=== PATIENT | female | born 1975 | race Caucasian/White ===

== ENCOUNTER 2018-06-02 11:00 | Emergency (ER) | payer MEDICARE, MEDICAID ==
[2018-06-02 11:23] VITALS: TEMP 97.2
[2018-06-02 11:32] LABS: BASOPHILS % (AUTO) 1 % (0-3); EOSINOPHILS % (AUTO) 1 % (0-9); HEMATOCRIT 44 % (35-47); HEMOGLOBIN 14.1 gm/dl (12.0-15.5); LYMPHOCYTES % (AUTO) 36.6 % (10-50); MEAN CORPUSCULAR HEMOGLOBIN 31.8 pg (27.0-32.0); MEAN CORPUSCULAR HGB CONC 32.1 gm/dl (32.0-36.0); MONOCYTES % (AUTO) 7.7 % (0-12); NEUTROPHILS % (AUTO) 53.9 % (37-80)
[2018-06-02 11:34] LABS: MEAN CORPUSCULAR VOLUME 99 fL (81-99)
[2018-06-02 11:52] LABS: ALBUMIN 3.6 gm/dl (3.4-5.0); BILIRUBIN,TOTAL 1.1 mg/dl (0.2-1.0); CALCIUM 8.6 mg/dl (8.5-10.1); CARBON DIOXIDE 27.1 mEq/L (21-32); CREATININE 1.26 mg/dl (0.60-1.00); POTASSIUM 4.1 mMol/L (3.5-5.1); TOTAL PROTEIN 7.6 gm/dl (6.4-8.2)
[2018-06-02 12:03] LABS: APPEARANCE,URINE Clear; BILIRUBIN,URINE NEGATIVE (NEGATIVE); COLOR,URINE Yellow; GLUCOSE, URINE (UA) NEGATIVE (NEGATIVE); KETONES,URINE NEGATIVE (NEGATIVE); LEUKOCYTE ESTERASE ,URINE NEGATIVE (NEGATIVE); NITRATE,URINE NEGATIVE (NEGATIVE); OCCULT BLOOD,URINE NEGATIVE (NEG-TRACE); UROBILINOGEN,URINE 0.2 (0.2-1.0 EU)
[2018-06-02 12:34] LABS: BACTERIA TRACE (< 1+); CRYSTALS NEGATIVE (0-3 AVE/HPF); EPITHELIAL CELLS 0-4 (SQUAMOUS); RBC,URINE 0-2 (0-3AV/HPF); WBC,URINE 0-3 (0-5AV/HPF)
[2018-06-02 14:29] VITALS: BP 108/67; PULSE 44; RESP 18; O2SAT 97
== END 2018-06-02 14:34 | disposition home or self-care (01) | DRG 948 ==
LOC: ED 11:00
DX: R41.82 Altered mental status, unspecified (principal); R00.1 Bradycardia, unspecified
CPT/HCPCS: 70450; 80053; 81001; 85025; 99284

== ENCOUNTER 2018-09-19 15:20 | Emergency (ER) | payer MEDICARE, MEDICAID ==
[2018-09-19 15:41] VITALS: TEMP 97.4; O2SAT 100
[2018-09-19 16:12] VITALS: RESP 20
[2018-09-19 16:36] VITALS: BP 109/77; PULSE 54
== END 2018-09-19 16:33 | disposition home or self-care (01) | DRG 914 ==
LOC: ED 15:20
DX: S09.90XA Unspecified injury of head, initial encounter (principal); W18.09XA Striking against other object with subsequent fall, initial encounter; R40.2362 Coma scale, best motor response, obeys commands, at arrival to emergency department; R40.2142 Coma scale, eyes open, spontaneous, at arrival to emergency department; R40.2242 Coma scale, best verbal response, confused conversation, at arrival to emergency department
CPT/HCPCS: 99282; 99283

== ENCOUNTER 2018-10-06 08:04 | Emergency (ER) | payer MEDICARE, MEDICAID ==
[2018-10-06 08:37] VITALS: RESP 19
[2018-10-06 08:45] LABS: HEMATOCRIT 45 % (35-47); HEMOGLOBIN 14.1 gm/dl (12.0-15.5); MEAN CORPUSCULAR HEMOGLOBIN 30.9 pg (27.0-32.0); MEAN CORPUSCULAR HGB CONC 31.3 gm/dl (32.0-36.0); MEAN CORPUSCULAR VOLUME 98 fL (81-99)
[2018-10-06 09:07] LABS: ALBUMIN 3.4 gm/dl (3.4-5.0); ALKALINE PHOSPHATASE 92 IU/L (46-116); ALT 18 IU/L (14-63); AST 21 IU/L (15-37); BILIRUBIN,TOTAL 1.2 mg/dl (0.2-1.0); BLOOD UREA NITROGEN 20 mg/dl (7-18); CALCIUM 8.9 mg/dl (8.5-10.1); CARBON DIOXIDE 29.6 mEq/L (21-32); CHLORIDE 104 mMol/L (98-107); GLUCOSE 96 mg/dl (74-106); POTASSIUM 4.2 mMol/L (3.5-5.1); SODIUM 140 mMol/L (136-145); TOTAL PROTEIN 7.2 gm/dl (6.4-8.2); TROP I < 0.017 ng/ml (0.000-0.056)
[2018-10-06 09:19] LABS: BAND NEUTROPHILS % (MANUAL) 2 %; BASOPHILS % (MANUAL) 1 % (0-3); EOSINOPHILS % (MANUAL) 1 % (0-9); LYMPHOCYTES % (MANUAL) 49 % (10-50); MONOCYTES % (MANUAL) 13 % (0-12); NEUTROPHILS % (MANUAL) 34 % (37-80)
[2018-10-06 09:20] LABS: NORMAL RBCS PRESENT
[2018-10-06 10:13] VITALS: BP 123/68; PULSE 50; TEMP 97.4; O2SAT 100
== END 2018-10-06 09:54 | disposition home or self-care (01) | DRG 310 ==
LOC: ED 08:04
DX: R00.1 Bradycardia, unspecified (principal); R55 Syncope and collapse
CPT/HCPCS: 36415; 80053; 84484; 85007; 85027; 93005; 99283; 99284

== ENCOUNTER 2018-10-14 08:35 | Emergency (ER) | payer MEDICARE, MEDICAID ==
[2018-10-14] MEDS ORDERED: SODIUM CHLORIDE 0.9% 1000ML 1,000 ML IV ONE (09:05)
[2018-10-14 09:15] LABS: BASOPHILS % (AUTO) 1 % (0-3); EOSINOPHILS % (AUTO) 0 % (0-9); HEMATOCRIT 46 % (35-47); HEMOGLOBIN 14.4 gm/dl (12.0-15.5); LYMPHOCYTES % (AUTO) 21.6 % (10-50); MEAN CORPUSCULAR HGB CONC 31.5 gm/dl (32.0-36.0); MEAN CORPUSCULAR VOLUME 98 fL (81-99); MONOCYTES % (AUTO) 7.7 % (0-12); NEUTROPHILS % (AUTO) 69.1 % (37-80)
[2018-10-14 09:30] LABS: ALBUMIN 3.6 gm/dl (3.4-5.0); BILIRUBIN,TOTAL 1.2 mg/dl (0.2-1.0); CALCIUM 8.7 mg/dl (8.5-10.1); CARBON DIOXIDE 28.3 mEq/L (21-32); CREATININE 1.37 mg/dl (0.60-1.00); POTASSIUM 4.2 mMol/L (3.5-5.1); TOTAL PROTEIN 7.4 gm/dl (6.4-8.2)
[2018-10-14] MEDS ORDERED: SODIUM CHLORIDE 0.9% 1000ML 1,000 ML IV SCH (09:45)
[2018-10-14] MEDS ORDERED: SODIUM CHLORIDE 0.9% FLUSH 10 ML SOL IV PRN (09:53)
[2018-10-14 11:11] LABS: APPEARANCE,URINE Clear; BILIRUBIN,URINE NEGATIVE (NEGATIVE); COLOR,URINE Yellow; GLUCOSE, URINE (UA) NEGATIVE (NEGATIVE); KETONES,URINE NEGATIVE (NEGATIVE); LEUKOCYTE ESTERASE ,URINE NEGATIVE (NEGATIVE); NITRATE,URINE NEGATIVE (NEGATIVE); OCCULT BLOOD,URINE NEGATIVE (NEG-TRACE); UROBILINOGEN,URINE 0.2 (0.2-1.0 EU)
[2018-10-14 11:20] LABS: BACTERIA 1+ (< 1+); CRYSTALS NEGATIVE (0-3 AVE/HPF); RBC,URINE 0-2 (0-3AV/HPF); WBC,URINE 0-2 (0-5AV/HPF)
[2018-10-14] MEDS ORDERED: SODIUM CHLORIDE 0.9% 1000ML 1,000 ML IV NR (12:15)
[2018-10-14 12:21] VITALS: BP 94/60; PULSE 68; RESP 14; TEMP 97.3; O2SAT 96
[2018-10-14] MEDS ORDERED: ACETAMINOPHEN 500 MG 500 MG TAB PO ONE (12:27)
[2018-10-14] MEDS ORDERED: ACETAMINOPHEN 500 MG 500 MG TAB ONE (12:28)
== END 2018-10-14 13:10 | disposition short-term general hospital (02) | DRG 101 ==
LOC: ED 08:35
DX: R56.9 Unspecified convulsions (principal); R00.1 Bradycardia, unspecified
CPT/HCPCS: 36415; 70450; 80053; 81001; 85025; 93005; 96365; 99283; 99285; G0390

== ENCOUNTER 2018-10-25 14:15 | Emergency (ER) | payer MEDICARE, MEDICAID ==
[2018-10-25 14:23] VITALS: TEMP 97.4
[2018-10-25] MEDS ORDERED: SODIUM CHLORIDE 0.9% 500 ML 500 ML IV ONE (14:36)
[2018-10-25 15:01] LABS: BASOPHILS % (AUTO) 1 % (0-3); EOSINOPHILS % (AUTO) 1 % (0-9); HEMATOCRIT 45 % (35-47); HEMOGLOBIN 14.5 gm/dl (12.0-15.5); MEAN CORPUSCULAR HEMOGLOBIN 31.2 pg (27.0-32.0); MEAN CORPUSCULAR VOLUME 98 fL (81-99); MONOCYTES % (AUTO) 5.6 % (0-12); NEUTROPHILS % (AUTO) 71.7 % (37-80)
[2018-10-25 15:11] LABS: ALBUMIN 3.5 gm/dl (3.4-5.0); BILIRUBIN,TOTAL 0.6 mg/dl (0.2-1.0); CALCIUM 8.6 mg/dl (8.5-10.1); CARBON DIOXIDE 28.2 mEq/L (21-32); CREATININE 1.45 mg/dl (0.60-1.00); POTASSIUM 4.1 mMol/L (3.5-5.1); THYROID STIMULATING HORMONE 2.8 uIU/ml (0.358-3.740); TOTAL PROTEIN 7.3 gm/dl (6.4-8.2)
[2018-10-25 15:20] LABS: APPEARANCE,URINE Slightly Cloudy; BILIRUBIN,URINE NEGATIVE (NEGATIVE); COLOR,URINE Yellow; GLUCOSE, URINE (UA) NEGATIVE (NEGATIVE); KETONES,URINE NEGATIVE (NEGATIVE); LEUKOCYTE ESTERASE ,URINE NEGATIVE (NEGATIVE); NITRATE,URINE NEGATIVE (NEGATIVE); OCCULT BLOOD,URINE NEGATIVE (NEG-TRACE); UROBILINOGEN,URINE 0.2 (0.2-1.0 EU)
[2018-10-25 15:30] LABS: BACTERIA 1+ (< 1+); CRYSTALS NEGATIVE (0-3 AVE/HPF); RBC,URINE NEG (0-3AV/HPF); WBC,URINE 0-2 (0-5AV/HPF)
[2018-10-25 17:20] VITALS: RESP 16; O2SAT 99
[2018-10-25 17:22] VITALS: BP 111/64; PULSE 63
== END 2018-10-25 17:25 | disposition home or self-care (01) | DRG 312 ==
LOC: ED 14:15
DX: R55 Syncope and collapse (principal); R56.9 Unspecified convulsions
CPT/HCPCS: 36415; 80053; 81001; 84443; 85025; 96365; 99284; 99285

== ENCOUNTER 2018-11-21 03:15 | Emergency (ER) | payer MEDICARE, MEDICAID ==
[2018-11-21 03:43] VITALS: RESP 18; TEMP 98
[2018-11-21 04:08] LABS: HEMATOCRIT 41 % (35-47); HEMOGLOBIN 13.4 gm/dl (12.0-15.5); MEAN CORPUSCULAR HEMOGLOBIN 31.9 pg (27.0-32.0); MEAN CORPUSCULAR HGB CONC 32.5 gm/dl (32.0-36.0); MEAN CORPUSCULAR VOLUME 98 fL (81-99)
[2018-11-21 04:23] VITALS: PULSE 60
[2018-11-21 04:24] LABS: APPEARANCE,URINE Clear; BILIRUBIN,URINE NEGATIVE (NEGATIVE); COLOR,URINE Yellow; GLUCOSE, URINE (UA) NEGATIVE (NEGATIVE); KETONES,URINE NEGATIVE (NEGATIVE); LEUKOCYTE ESTERASE ,URINE NEGATIVE (NEGATIVE); NITRATE,URINE NEGATIVE (NEGATIVE); OCCULT BLOOD,URINE NEGATIVE (NEG-TRACE); PH,URINE 5.5; UROBILINOGEN,URINE 0.2 (0.2-1.0 EU)
[2018-11-21 04:29] LABS: CALCIUM 8.3 mg/dl (8.5-10.1); CARBON DIOXIDE 28.3 mEq/L (21-32); CREATININE 1.13 mg/dl (0.60-1.00); THYROID STIMULATING HORMONE 1.221 uIU/ml (0.358-3.740)
[2018-11-21 04:39] LABS: BAND NEUTROPHILS % (MANUAL) 0 %; BASOPHILS % (MANUAL) 1 % (0-3); EOSINOPHILS % (MANUAL) 5 % (0-9); LYMPHOCYTES % (MANUAL) 38 % (10-50); MONOCYTES % (MANUAL) 5 % (0-12); NEUTROPHILS % (MANUAL) 51 % (37-80)
[2018-11-21 04:40] LABS: NORMAL RBCS NORMAL RBCS
[2018-11-21 04:47] LABS: BACTERIA TRACE (< 1+); CRYSTALS NEGATIVE (0-3 AVE/HPF); EPITHELIAL CELLS 0-2 (SQUAMOUS); RBC,URINE 0-2 (0-3AV/HPF); WBC,URINE 0-2 (0-5AV/HPF)
[2018-11-21 05:11] VITALS: BP 101/68; O2SAT 96
== END 2018-11-21 05:06 | disposition home or self-care (01) | DRG 100 ==
LOC: ED 03:15
DX: R56.9 Unspecified convulsions (principal); R40.2222 Coma scale, best verbal response, incomprehensible words, at arrival to emergency department; R55 Syncope and collapse; E86.0 Dehydration; E03.9 Hypothyroidism, unspecified; R40.2362 Coma scale, best motor response, obeys commands, at arrival to emergency department; R40.2142 Coma scale, eyes open, spontaneous, at arrival to emergency department
CPT/HCPCS: 36415; 80048; 81001; 84443; 85007; 85027; 96365; 99283; 99284

== ENCOUNTER 2018-11-21 08:10 | Emergency (ER) | payer MEDICARE, MEDICAID ==
[2018-11-21 08:25] VITALS: BP 115/70; PULSE 60; RESP 17; TEMP 97.6; O2SAT 100
[2018-11-21] MEDS ORDERED: SODIUM CHLORIDE 0.9% 1000ML 1,000 ML IV ONE (09:39)
[2018-11-21] MEDS ORDERED: SODIUM CHLORIDE 0.9% FLUSH 10 ML SOL IV PRN (09:45)
== END 2018-11-21 11:17 | disposition home or self-care (01) | DRG 101 ==
LOC: ED 08:10
DX: R56.9 Unspecified convulsions (principal)
CPT/HCPCS: 99284

== ENCOUNTER 2019-02-04 19:11 | Emergency (ER) | payer MEDICARE, MEDICAID ==
[2019-02-04 19:46] VITALS: BP 106/70; PULSE 66; RESP 18; TEMP 97.9; O2SAT 99
== END 2019-02-04 20:04 | disposition home or self-care (01) | DRG 103 ==
LOC: ED 19:11
DX: R51 Headache (principal); S09.90XA Unspecified injury of head, initial encounter; W19.XXXA Unspecified fall, initial encounter; R40.2362 Coma scale, best motor response, obeys commands, at arrival to emergency department; R40.2142 Coma scale, eyes open, spontaneous, at arrival to emergency department; R40.2252 Coma scale, best verbal response, oriented, at arrival to emergency department
CPT/HCPCS: 70450; 99282; 99283

== ENCOUNTER 2019-02-21 11:21 | Emergency (ER) | payer MEDICARE, MEDICAID ==
[2019-02-21 11:28] VITALS: RESP 16; TEMP 97.8
[2019-02-21 11:53] LABS: BASOPHILS % (AUTO) 1 % (0-3); EOSINOPHILS % (AUTO) 0 % (0-9); HEMATOCRIT 44 % (35-47); HEMOGLOBIN 13.8 gm/dl (12.0-15.5); LYMPHOCYTES % (AUTO) 31.7 % (10-50); MEAN CORPUSCULAR HEMOGLOBIN 30.8 pg (27.0-32.0); MEAN CORPUSCULAR HGB CONC 31.4 gm/dl (32.0-36.0); MEAN CORPUSCULAR VOLUME 98 fL (81-99); MONOCYTES % (AUTO) 10.1 % (0-12); NEUTROPHILS % (AUTO) 56.8 % (37-80)
[2019-02-21 12:12] LABS: ALBUMIN 3.8 gm/dl (3.4-5.0); BILIRUBIN,TOTAL 0.9 mg/dl (0.2-1.0); CALCIUM 8.9 mg/dl (8.5-10.1); CARBON DIOXIDE 28.3 mEq/L (21-32); CREATININE 1.32 mg/dl (0.60-1.00); POTASSIUM 4.1 mMol/L (3.5-5.1); TOTAL PROTEIN 7.9 gm/dl (6.4-8.2)
[2019-02-21 12:38] VITALS: BP 127/84; PULSE 60; O2SAT 99
== END 2019-02-21 13:10 | disposition home or self-care (01) | DRG 101 ==
LOC: ED 11:21
DX: R56.9 Unspecified convulsions (principal); K59.01 Slow transit constipation; R40.2362 Coma scale, best motor response, obeys commands, at arrival to emergency department; R40.2142 Coma scale, eyes open, spontaneous, at arrival to emergency department; R40.2242 Coma scale, best verbal response, confused conversation, at arrival to emergency department
CPT/HCPCS: 36415; 74019; 80053; 85025; 99283

== ENCOUNTER 2019-04-19 23:29 | Emergency (ER) | payer MEDICARE, MEDICAID ==
[2019-04-20 00:39] VITALS: BP 117/76; PULSE 61; RESP 14; TEMP 97.1; O2SAT 99
== END 2019-04-20 00:20 | disposition home or self-care (01) | DRG 101 ==
LOC: ED 23:29
DX: G40.909 Epilepsy, unspecified, not intractable, without status epilepticus (principal); R55 Syncope and collapse; E03.9 Hypothyroidism, unspecified
CPT/HCPCS: 99282